=== PATIENT | male | born 1995 | race Two or more races ===

== ENCOUNTER → 2025-07-22 | Outpatient (CLI) | payer OTHER ==
[~2025-07-22] MED LIST: PROHANCE 279.3MG/ML 15ML VIAL As Ordered ONE; PROHANCE 279.3MG/ML 5ML VIAL As Ordered ONE
== END ==
LOC: M RAD 08:31
PROVIDERS: ATTEND Physician Assistant Medical
DX: R51.9 Headache, unspecified (principal)